=== PATIENT | female | born 1955 | race Hispanic/Latino ===

== ENCOUNTER 2019-08-10 11:08 | Emergency (ER) | payer OTHER ==
[~2019-08-10] VITALS: Ht 149.9 cm; Wt 65.8 kg
[2019-08-10] MEDS ORDERED: TAMIFLU75 MG PO (11:21)
[2019-08-10] MEDS ORDERED: FLONASE SENSIM5.9 ML (11:22)
[2019-08-10] MEDS ORDERED: ALLERGY REL1 MG/1 ML PO (11:23)
[2019-08-10] MEDS ORDERED: AMOXICILLIN500 MG PO (11:23)
[2019-08-10] MEDS ORDERED: BENZONATATE200 MG PO (11:24)
[2019-08-10] MEDS ORDERED: AMOXICILLI400 MG/5 M PO (16:31)
--- NOTE | 2019-08-11 12:51 | EKG ---
[facility] [place] [facility] [address] [place], [place] [address] Signed Normal sinus rhythm Normal ECG Confirmed by SILVANA SILVEIRA MD ([id number] on 08/11/2019 12:51:26 PM Electronically Signed By: SILVANA SILVEIRA MD 08/11/19 1251 PATIENT NAME: ANGELA CROFT Electrocardiogram DATE OF : 53 PHYSICIAN: SILVANA SILVEIRA MD REPORT #: [id number] REPORT IS CONFIDENTIAL AND NOT TO BE RELEASED WITHOUT AUTHORIZATION
== END 2019-08-10 17:08 | disposition home or self-care (01) ==
LOC: ED 11:08
DX: J11.1 Influenza due to unidentified influenza virus with other respiratory manifestations (principal); Z88.5 Allergy status to narcotic agent; Z88.8 Allergy status to other drugs, medicaments and biological substances; Z79.899 Other long term (current) drug therapy
CPT/HCPCS: 70491; 71045; 80053; 83605; 84484; 85025; 93005; 93010; 99284-25; J0696; J1100; J1885; J7030; Q9967